=== PATIENT | female | born 1985 | race American Indian/Alaskan Native ===

== ENCOUNTER 2017-10-07 12:54 | Emergency (ER) | payer MEDICAID ==
[2017-10-07 13:15] VITALS: BP 141/80
--- NOTE | 2017-10-07 14:56 | Emergency Department Report ---
Blank Doc - Documentation Documentation: Patient is a 32-year-old [place] female who is presenting with lower abdominal pain for the last several days. Patient states there is some mild dysuria and low back pain as well. Patient took a test several weeks ago was positive she does not know how far along she may be. Patient will have a urinalysis done as well as a beta quant and ultrasound rule out ectopic.
--- NOTE | 2017-10-07 16:06 | Emergency Department Report ---
ED Abdominal Pain HPI - General Chief Complaint: Abdominal Pain Stated Complaint: STOMACH PAIN Time Seen by Provider: 10/07/17 14:49 Source: patient Mode of arrival: Ambulatory Limitations: No Limitations - History of Present Illness Initial Comments: Patient is a 32-year-old [place] female who is presenting with lower abdominal pain for the last 4 days. Patient states there is some mild dysuria and low back pain as well. Patient took a test several weeks ago was positive she does not know how far along she may be. Patient says that she usually sees Dr. Tacho Stokes at [facility] and she will be going to see him sometime next week. She reports that her pain is 7 out of 10 Pelvic area and is cramping . Denies any vaginal bleeding or discharge. Last menstrual period was 08/01/2017. Denies any vomiting or diarrhea but nausea on and off. MD Complaint: abdominal pain Onset/Timin -: days(s) Radiation: suprapubic Migration to: no migration Severity: severe Severity scale (0 -10): 7 Quality: cramping Consistency: intermittent Improves With: nothing Worsens With: nothing Context: other () Associated Symptoms: nausea, dysuria. denies: vomiting, diarrhea, fever, chills , constipation, hematemesis, hematochezia, melena, hematuria, anorexia, syncope Treatments Prior to Arrival: other (none) - Related Data LMP (females 10-50): Previous Rx's Medication Instructions Recorded Last Taken Type Doxylamine Succinate/Vit B6 1 each PO QHS PRN #15 tablet. 10/07/17 Unknown Rx [Hillary Hernadez 10-10 mg Tablet] Nitrofurantoin Payne/M-Cryst 100 mg PO Q12HR 7 Days #14 capsule 10/07/17 Unknown Rx [Macrobid CAP] Vit No.130/Iron/Folic 1 each PO QDAY 30 Days #30 tablet 10/07/17 Unknown Rx [ Tablet] Allergies Allergy/AdvReac Type Severity Reaction Status Date / Time No Known Allergies Allergy Verified 02/13/14 12:26 ED Review of Systems ROS: Stated complaint: STOMACH PAIN Other details as noted in HPI Constitutional: denies: chills, fever Eyes: denies: eye pain, eye discharge ENT: denies: ear pain, throat pain Respiratory: denies: cough, shortness of breath, SOB with exertion, SOB at rest , stridor, wheezing Cardiovascular: denies: chest pain, palpitations, dyspnea on exertion, edema, syncope Gastrointestinal: abdominal pain, nausea. denies: vomiting, diarrhea, constipation, hematemesis, melena, hematochezia Genitourinary: dysuria, abnormal menses. denies: urgency, frequency, hematuria , discharge, dyspareunia Musculoskeletal: back pain. denies: joint swelling, arthralgia, myalgia Skin: denies: rash, lesions Neurological: denies: headache, weakness, paresthesias, abnormal gait ED Past Medical Hx - Past Medical History Previous Medical History?: No - Surgical History Past Surgical History?: Yes Additional Surgical History: X 3 - Family History Family history: hypertension - Social History Smoking Status: Never Smoker Substance Use Type: Alcohol - Medications Home Medications: Home Medications Medication Instructions Recorded Confirmed Last Taken Type Doxylamine Succinate/Vit B6 1 each PO QHS PRN #15 tablet. 10/07/17 Unknown Rx [Diclegis Dr 10-10 mg Tablet] Nitrofurantoin Payne/M-Cryst 100 mg PO Q12HR 7 Days #14 capsule 10/07/17 Unknown Rx [Macrobid CAP] Vit No.130/Iron/Folic 1 each PO QDAY 30 Days #30 tablet 10/07/17 Unknown Rx [ Tablet] ED Physical Exam - General Limitations: No Limitations General appearance: alert, in no apparent distress - Head Head exam: Present: atraumatic, normocephalic, normal inspection - Eye Eye exam: Present: normal appearance, PERRL, EOMI Pupils: Present: normal accommodation - ENT ENT exam: Present: normal exam, normal orophraynx, mucous membranes moist - Neck Neck exam: Present: normal inspection, full ROM. Absent: tenderness, lymphadenopathy - Respiratory Respiratory exam: Present: normal lung sounds bilaterally. Absent: respiratory distress, chest wall tenderness - Cardiovascular Cardiovascular Exam: Present: regular rate, normal rhythm, normal heart sounds. Absent: systolic murmur, diastolic murmur - GI/Abdominal GI/Abdominal exam: Present: soft, tenderness (minimal suprapubic), normal bowel sounds. Absent: distended, guarding, rebound, rigid, organomegaly, mass - Extremities Exam Extremities exam: Present: normal inspection, full ROM, normal capillary refill , other (No cce. + 2 pulses in all extremities, no neurovascular compromise). Absent: tenderness, pedal edema, joint swelling, calf tenderness - Back Exam Back exam: Present: normal inspection, full ROM, tenderness, CVA tenderness (L) , other (ambulates without any difficulties). Absent: CVA tenderness (R), muscle spasm, paraspinal tenderness, vertebral tenderness, rash noted - Neurological Exam Neurological exam: Present: alert, oriented X3, normal gait, reflexes normal. Absent: motor sensory deficit - Psychiatric Psychiatric exam: Present: normal affect, normal mood - Skin Skin exam: Present: warm, dry, intact, normal color. Absent: rash ED Course Vital Signs 10/07/17 13:11 Temperature 98.5 F Pulse Rate 86 Respiratory 18 Rate Blood Pressure 141/80 O2 Sat by Pulse 100 Oximetry - Reevaluation(s) Reevaluation #1: 10/07/17 19:24 Patient stable throughout ED course. She did not require any medication. She is tolerating oral fluids well ED Medical Decision Making - Lab Data Lab Results 10/07/17 10/07/17 Range/Units 15:16 15:56 HCG, Quant 54874 H (0-4) mIU/mL Urine Color Yellow (Yellow) Urine Turbidity Clear (Clear) Urine pH 6.0 (5.0-7.0) Ur Specific [place] 1.014 (1.003-1.030) Urine Protein <15 mg/dl (Negative) mg/dL Urine Glucose (UA) Neg (Negative) mg/dL Urine Ketones Neg (Negative) mg/dL Urine Blood Neg (Negative) Urine Nitrite Neg (Negative) Urine Bilirubin Neg (Negative) Urine Urobilinogen < 2.0 (<2.0) mg/dL Ur Leukocyte Esterase Lg (Negative) Urine WBC (Auto) 20.0 H (0.0-6.0) /HPF Urine RBC (Auto) 3.0 (0.0-6.0) /HPF U Epithel Cells (Auto) 7.0 (0-13.0) /HPF Urine Bacteria (Auto) 1+ (Negative) /HPF Urine Mucus Few /HPF Urine culture sent - Radiology Data Radiology results: report reviewed Patient had OB transabdominal ultrasound less than 14 weeks dictated by radiologist's report reviewed by myself. Please see details below. Patient: JAZZY BLANDONA MR#: [id number] : 1985 Acct:[id number] Age/Sex: 32 / F ADM Date: 10/07/17 Loc: ED Attending Dr: Ordering Physician: PRITI NOVOA MD Date of Service: 10/07/17 Procedure(s): US OB <= 14 weeks fetus Accession Number(s): [id number] cc: PRITI NOVOA MD FINAL REPORT EXAM: US OB lt; = 14 WEEKS FETUS HISTORY: preg with abd pain TECHNIQUE: Transabdominal sonography of the pelvis. PRIORS: None. FINDINGS: There is a single, live intrauterine . Ultrasound estimated gestational age is 9 weeks 6 days. Ultrasound estimated date of confinement is 06 May 2018. heart motion is detected. The right ovary measures 3.1 x 1.2 x 3.1 cm and is grossly unremarkable. The left ovary measures 3.8 x 2.6 x 3.9 cm and contains a rounded, complex cystic focus measuring approximately 2.7 cm. Remainder of uterus and adnexa grossly unremarkable. IMPRESSION: 1. Single, live intrauterine . 2. Findings which may represent functional cystic change in the left ovary. Clinical correlation and followup pelvic ultrasound in 6-10 weeks advised to document resolution. Transcribed By: [facility] Dictated By: MARLY HARRIS MD Electronically Authenticated By: MARLY HARRIS MD Signed Date/Time: 10/07/171902 DD/ 02 TD/TT: 10/07/171902 - Medical Decision Making This is a 32-year-old female patient here reports that she is having lower abdominal pain and low back pain with urinary burning and she took test is home which is positive. Since that she sees Dr. Tacho Stokes who is her [employer] doctor who she has an appointment with. Patient was screened by Dr. Marina Novoa and orders place to include urinalysis, hCG and transabdominal ultrasound. Patient examined by myself and physical exam is normal except she has mild tenderness to palpate to pelvic area. Urinalysis shows patient with large leukocyte Estrace, positive white blood cell and positive bacteria and urine test is positive. Her hCG positive and correlates with OB ultrasound which was dictated by radiologist and place patient at 9 weeks with detected motion. Single, lives intrauterine . Patient also has functional cyst to left ovary. Patient also reported that she was having some nausea on and off without any vomiting. I discussed with patient her lab results and also OB ultrasound results and she was understanding. She has an appointment with Dr. Mike Stokes. Patient also aware that she has left ovarian cyst which she says she really knows about. Patient with urinary tract infection and , urine culture sent. Nausea intermittent and , abdominal pain in and left ovarian cyst. Patient discharged home in stable condition in no acute distress. Patient given prescription for Macrobid, vitamin andDiclegis. She understands that she is to follow-up with Dr. Tacho Stokes in 2 days. I also discussed with her she has vaginal bleeding and, nausea vomiting, fever and/or chills or return to the emergency room [facility] and she was understanding her vital signs are stable, she is afebrile and her pain has subsided while waiting in an emergency room. - Differential Diagnosis ectopic , threatened miscarriage, ovarian cyst, UTI Critical care attestation.: If time is entered above; I have spent that time in minutes in the direct care of this critically ill patient, excluding procedure time. ED Disposition Clinical Impression: Abdominal pain during in first trimester, Nausea and vomiting in adult patient UTI (urinary tract infection) during Qualifiers: Trimester: first trimester Qualified Code(s): O23.41 - Unspecified infection of urinary tract in , first trimester Dysuria in Qualifiers: Trimester: first trimester Qualified Code(s): O26.891 - Other specified related conditions, first trimester Disposition: DC-01 TO HOME OR SELFCARE Is pt being admited?: No Does the pt Need Aspirin: No Condition: Stable Instructions: Urinary Tract Infection in Women (ED), Acute Nausea and Vomiting (ED), Dysuria (ED), Abdominal Pain in (ED) Additional Instructions: Please follow-up with your C[facility] INFORMATION ASSOCIATE at outside [facility]. Keep appointment as discussed Start taking vitamin Take Macrobid for UTI Increase fluid intake Take nausea medication as prescribed Prescriptions: Doxylamine Succinate/Vit B6 [Hillary Hernadez 10-10 mg Tablet] 1 each PO QHS PRN #15 tablet. PRN Reason: Nausea And Vomiting Nitrofurantoin Payne/M-Cryst [Macrobid CAP] 100 mg PO Q12HR 7 Days #14 capsule Vit No.130/Iron/Folic [ Tablet] 1 each PO QDAY 30 Days #30 tablet Referrals: TACHO STOKES MD [Staff Physician] - 10/09/17 Forms: Work/School Release Form(ED)
[2017-10-07 16:22] LABS: Bacteria,Urine 1+ /HPF (Negative); Bilirubin,Urine NEG (Negative); Blood,Urine NEG (Negative); Color,Urine Yellow (Yellow); Mucus,Urine FEW /HPF; Protein,Urine <15 mg/dL mg/dL (Negative); Urobilinogen,Urine < 2.0 mg/dL (<2.0)
--- NOTE | 2017-10-07 19:10 | Ultrasound Report ---
FINAL REPORT EXAM: US OB < = 14 WEEKS FETUS HISTORY: preg with abd pain TECHNIQUE: Transabdominal sonography of the pelvis. PRIORS: None. FINDINGS: There is a single, live intrauterine . Ultrasound estimated gestational age is 9 weeks 6 days. Ultrasound estimated date of confinement is 06 May 2018. heart motion is detected. The right ovary measures 3.1 x 1.2 x 3.1 cm and is grossly unremarkable. The left ovary measures 3.8 x 2.6 x 3.9 cm and contains a rounded, complex cystic focus measuring approximately 2.7 cm. Remainder of uterus and adnexa grossly unremarkable. IMPRESSION: 1. Single, live intrauterine . 2. Findings which may represent functional cystic change in the left ovary. Clinical correlation and followup pelvic ultrasound in 6-10 weeks advised to document resolution.
== END 2017-10-07 19:35 | disposition home or self-care (01) ==
LOC: ED 12:54
DX: O23.41 Unspecified infection of urinary tract in pregnancy, first trimester (principal); O21.9 Vomiting of pregnancy, unspecified; Z3A.09 9 weeks gestation of pregnancy
CPT/HCPCS: 36415; 76801; 81001; 84702; 87086; 99284

== ENCOUNTER 2018-05-05 18:11 | Inpatient (IN) | payer MEDICAID, OTHER ==
[2018-05-05] MEDS ORDERED: LACTATED RINGERS 1,000 ML IV ONE ×2 (20:52→22:48)
[2018-05-05 21:07] LABS: Bilirubin,Urine NEG (Negative); Blood,Urine NEG (Negative); Color,Urine Yellow (Yellow); Mucus,Urine 2+ /HPF
[2018-05-05 23:00] LABS: Hematocrit 26.3 % (30.3-42.9); Hemoglobin 7.8 gm/dl (10.1-14.3); Mean Corpuscular HGB Conc 30 % (30-34); Platelet Count 147 K/mm3 (140-440); Red Blood Count 3.96 M/mm3 (3.65-5.03); Red Cell Distribution Width 18.8 % (13.2-15.2)
[2018-05-05 23:18] LABS: Mean Corpuscular Volume 67 fl (79-97)
--- NOTE | 2018-05-05 23:43 | History and Physical Report ---
History of Present Illness Date of examination: 05/05/18 Chief complaint: Labor History of present illness: Pt is a 33yo BF EDC 05/16/18; EGA 38 3/7 weeks presents to L&D complaining of RUC's q 4-5 mins. She received care at [facility] and course significant for previous C Section x 3. She had a non- reassuring tracing in Triage and BPP 6/10 with SALINAS 6.1 Past History Past Medical History: no pertinent history Past Surgical History: section (x3) Family/Genetic History: none Social history: no significant social history, single - Obstetrical History Expected Date of Delivery: 05/16/18 Actual Gestation: 38 Week(s) 3 Day(s) : 6 Medications and Allergies Allergies Allergy/AdvReac Type Severity Reaction Status Date / Time No Known Allergies Allergy Verified 05/05/18 19:54 Home Medications Medication Instructions Recorded Confirmed Last Taken Type No Known Home Medications [No 05/05/18 05/05/18 Unknown History Reported Home Medications] Active Meds: Active Medications Lactated Ringer's (Lactated Ringers) 1,000 mls @ 999 mls/hr IV BOLUS ONE Stop: 05/05/18 23:48 Review of Systems All systems: negative - Vital Signs Vital signs: Vital Signs Pulse BP 87 138/73 05/05/18 19:18 05/05/18 19:18 Temp Pulse Resp BP Pulse Ox 98.0 F 93 H 20 135/71 100 05/05/18 19:37 05/05/18 23:36 05/05/18 19:37 05/05/18 21:55 05/05/18 23:36 - Physical Exam Breasts: Positive: deferred Cardiovascular: Regular rate Lungs: Positive: Clear to auscultation Abdomen: Positive: normal appearance Genitourinary (Female): Positive: normal external genitalia Vagina: Positive: normal moisture Uterus: Positive: enlarged Extremities: Positive: normal - Obstetrical FHR: category 2 Uterine Contraction Monitor Mode: External Cervical Dilatation: 1 (per nurse) Cervical Effacement Percentage: 70 (per nurse) Uterine Contraction Pattern: Irregular Uterine Tone Measurement Phase: Contraction Uterine Contraction Intensity: Moderate Results Result Diagrams: 05/05/18 22:45 Abnormal lab results 05/05/18 Range/Units 22:45 Hgb 7.8 L (10.1-14.3) gm/dl Hct 26.3 L (30.3-42.9) % MCV 67 L (79-97) fl MCH 20 L (28-32) pg RDW 18.8 H (13.2-15.2) % All other labs normal. Ultrasound: report reviewed (BPP 6/; SALINAS 6.1) Assessment and Plan - Patient Problems (1) 38 weeks gestation of Onset Date: 05/05/18 Current Visit: Yes Status: Acute Plan to address problem: A: IUP @ 38 3/7 weeks in labor Previous C Section Non-reassuring surveillance Anemia affecting P: Admit to L&D for Repeat C Section Will transfuse 1 unit of blood prior to C Section (2) Previous section complicating Onset Date: 05/05/18 Current Visit: Yes Status: Acute (3) Anemia affecting in third trimester Onset Date: 05/05/18 Current Visit: Yes Status: Acute
[2018-05-05] MEDS ORDERED: NACL 0.9% 500 ML 500 ML IV ONE (23:44)
[2018-05-05] MEDS ORDERED: BICITRA PO ONE (23:44)
[2018-05-05] MEDS ORDERED: TYLENOL PO ONE (23:44)
[2018-05-05] MEDS ORDERED: BENADRYL IV ONE (23:44)
[2018-05-05] MEDS ORDERED: PEPCID IV ONE (23:44)
[2018-05-05] MEDS ORDERED: REGLAN IV ONE (23:44)
[2018-05-05] MEDS ORDERED: LACTATED RINGERS 1,000 ML IV SCH (23:45)
[2018-05-05] MEDS ORDERED: ANCEF/STERILE WATER 2 GM/20 ML 2 GM/20 ML SYRINGE IV NR (23:45)
[2018-05-05] MEDS ORDERED: PITOCin/NS 20 UNIT/1000ML DRIP 20 UNITS/1,000 ML BAG IV SCH (23:45)
[2018-05-06] MEDS ORDERED: ALBUTEIN IV ONE (00:06)
[2018-05-06] MEDS ORDERED: SUBLIMAZE ONE (00:39)
[2018-05-06] MEDS ORDERED: ASTRAMORPH PF 10MG/10ML ONE (00:39)
--- NOTE | 2018-05-06 00:47 | Ultrasound Report ---
PROCEDURE: US OB BPP WO NON-STRESS TECHNIQUE: Ultrasound for biophysical profile obtained. HISTORY: wellbeing COMPARISONS: None FINDINGS: Single IUP visualized. Viable fetus with heart rate of 154 bpm. Biophysical profile is 6/8. Low amniotic fluid index measuring 6.1 cm. IMPRESSION: Biophysical profile is 6/8. Low amniotic fluid index measuring 6.1 cm.. This document is electronically signed by Reza Prince MD., May 06 2018 12:44:44 AM ET
--- NOTE | 2018-05-06 01:02 | Ultrasound Report ---
PROCEDURE: US OB LIMITED TECHNIQUE: Limited OB ultrasound obtained. HISTORY: wellbeing COMPARISONS: None FINDINGS: Single IUP visualized. Viable fetus with heart rate of 154 bpm. Amniotic fluid index measures 6.1 cm, correlate for ruptured membranes. IMPRESSION: Single IUP visualized. Viable fetus with heart rate of 154 bpm. Amniotic fluid index measures 6.1 cm, correlate for ruptured membranes.. This document is electronically signed by Reza Prince MD., May 06 2018 12:59:49 AM ET
[2018-05-06] MEDS ORDERED: WATER FOR IRRIG STERILE IR ONE (01:06)
[2018-05-06] MEDS ORDERED: NACL 0.9% IR ONE (01:06)
[2018-05-06] MEDS ORDERED: TORADOL ONE (01:28)
--- NOTE | 2018-05-06 01:42 | Operative Report ---
Operative Report Operative Report: Date of procedure: 05/06/2018 Pre-operative diagnosis: 1. Intrauterine at 38-3/7 weeks in labor 2 . Previous 3 3. Non-reassuring surveillance 4. Anemia affecting Post-operative diagnosis: Same. Meconium fluid. Procedure name(s): Repeat low transverse section Surgeon: Tacho Stokes MD [place] Structural Glass: None Anesthesia: Spinal anesthesia by Dr. Dunbar EBL: 600 mL Findings: A 3482 g female Apgars 8 at 1 minute and 5 minutes. 1+ meconium fluid. Normal uterus and lower uterine segment adhesions. Normal tubes and ovaries bilaterally. Procedure: After the patient was prepped and draped in usual sterile fashion, and after satisfactory level of epidural anesthesia was obtained, the skin knife was used to make a transverse skin incision through the previous skin scars. The incision was excised down to layer of the fascia, which was nicked in the midline and extended laterally using the Bovie cautery. The rectus muscles were dissected off the rectus fascia both superiorly and inferiorly. The rectus bellies in the midline, and the peritoneum was entered under direct visualization. The peritoneal incision was extended superiorly and inferiorly. A bladder flap was created and the bladder blade was then placed. The uterus w as scored in a curvilinear linear fashion, entered in the midline revealing meconium amniotic fluid. The 's head was delivered onto the surgical field with the aid of a vacuum, and the oropharynx and nasopharynx were bulb suctioned. The rest of the infant's body was delivered, cord was doubly clamped and cut and the infant was handed to the waiting respiratory team. The placenta was manually removed from the uterus, and the uterus removed from its normal anatomical position. After gentle uterine lavage, the incision was inspected and found to be without extensions. It was then closed in 2 layers using 0 Vicryl suture in a running interlocking fashion, the second layer imbricating the first. After good hemostasis was achieved, copious amounts or irrigation was performed, and the gutters were suctioned free of blood and blood clots. The Tisseel sealant was sprayed across the uterine incision. The uterus was then returned to its normal anatomical position, and after excellent hemostasis assured, the peritoneum was re-approximated using 3-0 Vicryl suture in a running interlocking fashion, and then the rectus muscles were re-approximated using 3-0 Vicryl suture in a [id number] configuration. The fascia was then re- approximated using 0 Vicryl suture in running interlocking fashion. The subcutaneous layer was made hemostatic using Bovie cautery, the Tisseel sealant was sprayed across the fascial incision and the skin edges re-approximated using 4-0 Vicryl suture in a sub-cuticular fashion. Patient tolerated the procedure well was transported to recovery in stable condition.
[2018-05-06] MEDS ORDERED: TYLENOL PO PRN (01:52)
[2018-05-06] MEDS ORDERED: MILK OF MAGNESIA PO PRN (01:52)
[2018-05-06] MEDS ORDERED: ZOFRAN IV PRN ×2 (01:52→02:03)
[2018-05-06] MEDS ORDERED: TUCKS PAD TP PRN (01:52)
[2018-05-06] MEDS ORDERED: TORADOL IV PRN (01:52)
[2018-05-06] MEDS ORDERED: PHENERGAN PR PRN ×2 (01:52→02:03)
[2018-05-06] MEDS ORDERED: NARCAN 0.4 MG/1 ML IV PRN ×2 (01:52→02:03)
[2018-05-06] MEDS ORDERED: MYLICON PO PRN (01:52)
[2018-05-06] MEDS ORDERED: LANSINOH TP PRN (01:52)
[2018-05-06] MEDS ORDERED: SENOKOT PO PRN (01:52)
[2018-05-06] MEDS ORDERED: D5LR 1,000 ML IV SCH (02:00)
[2018-05-06] MEDS ORDERED: ANCEF/NS 1 GM/50 ML 1 GM/50 ML BAG IV SCH (02:00)
[2018-05-06] MEDS ORDERED: PITOCin/NS 20 UNIT/1000ML DRIP 20 UNITS/1,000 ML BAG IV SCH (02:00)
[2018-05-06] MEDS ORDERED: SODIUM CHLORIDE FLUSH SYRINGE 10 ML IV NR ×2 (02:00→03:00)
--- NOTE | 2018-05-06 02:02 | Anesthesia Consultation ---
Anesthesia Consult and Med Hx - Airway Anesthetic Teeth Evaluation: Good ROM Head & Neck: Adequate Mental/Hyoid Distance: Adequate Mallampati Class: Class III Intubation Access Assessment: Probably Good - Pulmonary Exam CTA: Yes - Cardiac Exam Cardiac Exam: RRR - Pre-Operative Health Status ASA Pre-Surgery Classification: ASA2, Emergency Proposed Anesthetic Plan: Spinal - Pulmonary Hx Smoking: No Hx Asthma: No Hx Respiratory Symptoms: No SOB: No COPD: No Home Oxygen Therapy: No Hx Pneumonia: No Hx Sleep Apnea: No - Cardiovascular System Hx Hypertension: No Hx Coronary Artery Disease: No Hx Heart Attack/AMI: No Hx Angina: No Hx Percutaneous Transluminal Coronary Angioplasty (PTCA): No Hx Cardia Arrhythmia: No Hx Pacemaker: No Hx Internal Defibrillator: No Hx Valvular Heart Disease: No Hx Heart Murmur: No Hx Peripheral Vascular Disease: No - Central Nervous System Hx Neuromuscular Disorder: No Hx Seizures: No CVA: No Hx Back Pain: No Hx Psychiatric Problems: No - Gastrointestinal Hx Ulcer: No Hx Gastroesophageal Reflux Disease: No - Endocrine Hx Renal Disease: Yes (frequent UTI) Hx End Stage Renal Disease: No Hx Cirrhosis: No Hx Liver Disease: No Hx Insulin Dependent Diabetes: No Hx Non-Insulin Dependent Diabetes: No Hx Thyroid Disease: No Hx Hypothyroidism: No Hx Hyperthyroidism: No - Hematic Hx Anemia: Yes Hx Sickle Cell Disease: No - Other Systems Hx Alcohol Use: No Hx Substance Use: No Hx Cancer: No Hx Obesity: No
[2018-05-06] MEDS ORDERED: PHENERGAN PO PRN (02:03)
--- NOTE | 2018-05-06 02:03 | Anesthesia Day of Surgery ---
Anesthesia Day of Surgery - Day of Surgery Patient Examined: Yes Patient H&P Reviewed: Yes Patient is NPO: Yes Beta Blockers: No Cardiac Clearance: No Pulmonary Clearance: No Karthik's Test: N/A
--- NOTE | 2018-05-06 02:03 | Post Anesthesia Evaluation ---
- Post Anesthesia Evaluation Patient Participated: Yes Airway Patent: Yes Stable Respiratory Function: Yes Nausea/Vomiting: No Temp > 96.8F: Yes Pain Manageable: Yes Adequeate Hydration: Yes Anesthesia Complications: No Block Receding Appropriately: Yes Patient on Ventilator: No
[2018-05-06] MEDS ORDERED: fentaNYL-BUPIV 2 MCG/ML-0.125% 200 MCG/100 ML BAG EPIDURAL SCH (03:00)
[2018-05-06] MEDS: FEOSOL PO SCH (11:53)
[2018-05-06] MEDS: ANCEF/NS 1 GM/50 ML 1 GM/50 ML BAG IV SCH ×2 (11:54→22:02)
[2018-05-06] MEDS: PRENATAL VITAMIN PO SCH (11:54)
[2018-05-06 13:39] LABS: Amphetamine Screen,Urine PRESUMPTIVE NEGATIVE; Benzodiazepines Screen,Urine PRESUMPTIVE NEGATIVE; Cannabinoid Screen,Urine PRESUMPTIVE NEGATIVE; Cocaine Screen,Urine PRESUMPTIVE NEGATIVE; Methadone Screen,Urine PRESUMPTIVE NEGATIVE; Opiate Screen,Urine PRESUMPTIVE NEGATIVE
[2018-05-06 17:04] LABS: Hematocrit 24.5 % (30.3-42.9); Hemoglobin 7.2 gm/dl (10.1-14.3)
[2018-05-06] MEDS: NORCO 5/325 PO PRN (22:00)
[2018-05-07] MEDS ORDERED: M-M-R II VACCINE SUB-Q ONE (01:54)
[2018-05-07] MEDS ORDERED: BOOSTRIX IM ONE (01:54)
[2018-05-07] MEDS: PERCOCET 5/325 PO PRN (02:41)
--- NOTE | 2018-05-07 09:01 | Progress Note ---
Assessment and Plan - Patient Problems (1) 38 weeks gestation of Onset Date: 05/05/18 Current Visit: Yes Status: Resolved (2) Previous section complicating Onset Date: 05/05/18 Current Visit: Yes Status: Resolved (3) Anemia affecting in third trimester Onset Date: 05/05/18 Current Visit: Yes Status: Chronic (4) Status post section Onset Date: 05/07/18 Current Visit: Yes Status: Resolved Plan to address problem: A: S/P C Section - POD #1 Doing well Asymptomatic anemia - stable P: Continue RPOC Encourage ambulation Anticipate discharge in 24-48hrs Subjective - Subjective Date of service: 05/07/18 Principal diagnosis: s/p C Section - POD #1 Interval history: Pt is complaining of incision pains. She is tolerating a liquid diet without nausea or vomiting, but not ambulating. Patient reports: appetite normal, voiding normally, pain poorly controlled, no dizzy ambulation, no flatus, no ambulating normally, no nauseated [place]: doing well, bottle feeding Objective - Vital Signs Latest vital signs: Vital Signs Temp Pulse Resp BP BP Pulse Ox 05/07/18 05:15 98.3 F 88 20 124/77 98 05/06/18 21:44 98.7 F 92 H 20 127/79 100 05/06/18 18:36 98.6 F 101 H 20 138/70 100 05/06/18 13:09 98.4 F 85 20 121/82 99 05/06/18 10:15 98.3 F 101 H 24 130/79 99 Intake and Output 05/06/18 05/07/18 05/07/18 22:59 06:59 14:59 Intake Total 240 Balance 240 Intake: Oral 240 Other: Total, Intake Amount 240 # Voids Void 1 - Exam Breasts: Present: deferred Abdomen: Present: normal appearance, soft Uterus: Present: normal, firm, fundal height below umbilicus Extremities: Present: normal Incision: Present: normal, dry, intact, dressed - Labs Labs: Abnormal lab results 05/05/18 05/06/18 Range/Units 22:45 15:40 Hgb 7.2 L (10.1-14.3) gm/dl Hct 24.5 L (30.3-42.9) % Crossmatch See Detail Laboratory Tests 05/05/18 05/05/18 05/05/18 20:06 22:45 22:45 WBC 7.2 RBC 3.96 Hgb 7.8 L Hct 26.3 L MCV 67 L MCH 20 L MCHC 30 RDW 18.8 H Plt Count 147 Urine Color Yellow Urine Turbidity Clear Urine pH 5.0 Ur Specific [place] 1.029 Urine Protein 30 mg/dl Urine Glucose (UA) Neg Urine Ketones Tr Urine Blood Neg Urine Nitrite Neg Urine Bilirubin Neg Urine Urobilinogen 4.0 Ur Leukocyte Esterase Tr Urine WBC (Auto) 5.0 Urine RBC (Auto) 1.0 U Epithel Cells (Auto) 2.0 Urine Mucus 2+ Urine Opiates Screen Urine Methadone Screen Ur Barbiturates Screen Ur Phencyclidine Scrn Ur Amphetamines Screen U Benzodiazepines Scrn Urine Cocaine Screen U Marijuana (THC) Screen Drugs of Abuse Note HIV 1&2 Antibody Rapid HIV P24 Antigen Rubella IgG Antibody Blood Type A POSITIVE Antibody Screen Negative Crossmatch See Detail 05/06/18 05/06/18 05/06/18 11:15 11:15 13:18 WBC RBC Hgb Hct MCV MCH MCHC RDW Plt Count Urine Color Urine Turbidity Urine pH Ur Specific [place] Urine Protein Urine Glucose (UA) Urine Ketones Urine Blood Urine Nitrite Urine Bilirubin Urine Urobilinogen Ur Leukocyte Esterase Urine WBC (Auto) Urine RBC (Auto) U Epithel Cells (Auto) Urine Mucus Urine Opiates Screen Presumptive negative Urine Methadone Screen Presumptive negative Ur Barbiturates Screen Presumptive negative Ur Phencyclidine Scrn Presumptive negative Ur Amphetamines Screen Presumptive negative U Benzodiazepines Scrn Presumptive negative Urine Cocaine Screen Presumptive negative U Marijuana (THC) Screen Presumptive negative Drugs of Abuse Note Disclamer HIV 1&2 Antibody Rapid Non react HIV P24 Antigen Non react Rubella IgG Antibody Immune Blood Type Antibody Screen Crossmatch 05/06/18 15:40 WBC RBC Hgb 7.2 L Hct 24.5 L MCV MCH MCHC RDW Plt Count Urine Color Urine Turbidity Urine pH Ur Specific [place] Urine Protein Urine Glucose (UA) Urine Ketones Urine Blood Urine Nitrite Urine Bilirubin Urine Urobilinogen Ur Leukocyte Esterase Urine WBC (Auto) Urine RBC (Auto) U Epithel Cells (Auto) Urine Mucus Urine Opiates Screen Urine Methadone Screen Ur Barbiturates Screen Ur Phencyclidine Scrn Ur Amphetamines Screen U Benzodiazepines Scrn Urine Cocaine Screen U Marijuana (THC) Screen Drugs of Abuse Note HIV 1&2 Antibody Rapid HIV P24 Antigen Rubella IgG Antibody Blood Type Antibody Screen Crossmatch
[2018-05-07] MEDS: IBUPROFEN PO PRN (09:07)
[2018-05-07] MEDS: FEOSOL PO SCH (09:14)
[2018-05-07] MEDS: PRENATAL VITAMIN PO SCH (09:14)
[2018-05-08] MEDS: IBUPROFEN PO PRN (01:27)
[2018-05-08] MEDS: NORCO 5/325 PO PRN (01:29)
--- NOTE | 2018-05-08 09:56 | Progress Note ---
Assessment and Plan - Patient Problems (1) 38 weeks gestation of Onset Date: 05/05/18 Current Visit: Yes Status: Resolved (2) Previous section complicating Onset Date: 05/05/18 Current Visit: Yes Status: Resolved (3) Anemia affecting in third trimester Onset Date: 05/05/18 Current Visit: Yes Status: Chronic (4) Status post section Onset Date: 05/07/18 Current Visit: Yes Status: Resolved Plan to address problem: A: S/P C Section - POD #2 Doing well Asymptomatic anemia - stable P: May go home tomorrow. Subjective - Subjective Date of service: 05/08/18 Principal diagnosis: s/p C Section - POD #2 Interval history: Pt is complaining of incision pains. She is tolerating a reg diet without nausea or vomiting, ambulating and voiding without difficulty. Patient reports: appetite normal, voiding normally, pain well controlled, flatus, ambulating normally, no dizzy ambulation, no nauseated : doing well, bottle feeding Objective - Vital Signs Latest vital signs: Vital Signs Temp Pulse Resp BP BP Pulse Ox 05/08/18 08:16 98.5 F 20 129/65 05/08/18 00:49 147/87 05/08/18 00:00 99.6 F 114 H 20 147/87 96 05/07/18 16:51 98.6 F 89 20 135/80 98 Intake and Output 05/07/18 05/08/18 05/08/18 22:59 06:59 14:59 Intake Total 240 240 Balance 240 240 Intake: Oral 240 240 Other: Total, Intake Amount 240 240 # Voids Void 1 1 - Exam Abdomen: Present: normal appearance, soft Uterus: Present: normal, firm, fundal height below umbilicus Extremities: Present: normal Incision: Present: normal, dry, intact
[2018-05-08] MEDS: FEOSOL PO SCH (10:54)
[2018-05-08] MEDS: PRENATAL VITAMIN PO SCH (10:54)
--- NOTE | 2018-05-08 12:52 | Discharge Summary ---
Providers - Providers Date of Admission: 05/06/18 01:56 Date of discharge: 05/09/18 Attending physician: MEETA CASTRO Primary care physician: SOFTWARE PROGRAMMER Hospitalization Reason for admission: active labor, section, IUP at term Delivery: Procedure: section, repeat low transverse Episiotomy: none Laceration: none Incision: normal, dry, intact Other procedures: none complications: none Discharge diagnosis: IUP at term delivered [place] baby: female Hospital course: Pt is a 33yo BF EDC 05/16/18; EGA 38 3/ weeks who presented to L&D complaining of RUC's q 4-5 mins. She said she received care at [facility] and course significant for previous C Section x 3. She had a non-reassuring tracing in Triage and BPP 10 with SALINAS 6.1 so she was delivered by an uncomplicated Repeat C Section. Post operative course was unremarkable and by POD #2 she was tolerating a reg diet without nausea or vomiting, ambulating and voiding without difficulty. She will therefore be discharged to home on POD #3 in stable condition. Condition at discharge: Good Disposition: [id number] TO HOME OR SELFCARE - Discharge Diagnoses (1) 38 weeks gestation of Status: Resolved (2) Previous section complicating Status: Resolved (3) Anemia affecting in third trimester Status: Chronic Plan - Discharge Medications Prescriptions: Ferrous Sulfate [Feosol 325 MG tab] 325 mg PO BID #60 tablet Ibuprofen [Motrin 800 MG tab] 800 mg PO Q6H PRN #30 tablet PRN Reason: Pain, Mild (1-3) HYDROcodone/APAP 5-325 [[place] 5-325 mg TAB] 1 each PO Q6HR PRN #30 tablet PRN Reason: Pain, Moderate (4-6) Vit-Fe Fumar-FA [ Vitamin] 1 each PO QDAY #30 tablet - Provider Discharge Summary Activity: routine, no sex for 6 weeks, no heavy lifting 4 weeks, no strenuous exercise Diet: routine Instructions: routine Additional instructions: [] Smoking cessation referral if applicable(refer to patient education folder for contact #) [] Refer to [facility] Booklet Call your doctor immediately for: * Fever > 100.5 * Heavy vaginal bleeding ( >1 pad per hour) * Severe persistent headache * Shortness of breath * Reddened, hot, painful area to leg or breast * Drainage or odor from incision. * Keep incision clean and dry at all times and follow doctor's instructions regarding bathing/showering - Follow up plan Follow up: PRIMARY CARE,MD [Primary Care Provider] - 7 Days MEETA CASTRO MD [Staff Physician] - 14 Days
[2018-05-08] MEDS: PERCOCET 5/325 PO PRN (21:56)
[2018-05-09] MEDS: PERCOCET 5/325 PO PRN (06:05)
[2018-05-09] MEDS: FEOSOL PO SCH (18:12)
[2018-05-09] MEDS: PRENATAL VITAMIN PO SCH (18:13)
[2018-05-09 20:16] VITALS: BP 148/75
== END 2018-05-09 16:40 | disposition home or self-care (01) | DRG 788 ==
LOC: TRG 18:11 → APU 05-06 01:56 → OB 05-06 03:10
PROVIDERS: ADMIT Obstetrics & Gynecology; ATTEND Obstetrics & Gynecology
PROC: 10D00Z1 Extraction of Products of Conception, Low, Open Approach (ICD-10-PCS; principal; 2018-05-06)
PROC: 30233N1 Transfusion of Nonautologous Red Blood Cells into Peripheral Vein, Percutaneous Approach (ICD-10-PCS; 2018-05-06)
PROC: 3E0234Z Introduction of Serum, Toxoid and Vaccine into Muscle, Percutaneous Approach (ICD-10-PCS; 2018-05-07)
DX: O34.211 Maternal care for low transverse scar from previous cesarean delivery (principal); O76 Abnormality in fetal heart rate and rhythm complicating labor and delivery; D64.9 Anemia, unspecified; O77.0 Labor and delivery complicated by meconium in amniotic fluid; O99.02 Anemia complicating childbirth; Z3A.38 38 weeks gestation of pregnancy; Z37.0 Single live birth; Z23 Encounter for immunization; Z87.440 Personal history of urinary (tract) infections
CPT/HCPCS: 36415; 76815; 76819; 80307; 81001; 85014; 85018; 85027; 86592; 86706; 86762; 86850; 86900; 86901; 86920; 87806; G0378; C9250; J0690; J1885; J2274; J2405; J2590; J2765; J3010; J7120; J7121; P9016; P9045

== ENCOUNTER 2020-05-17 15:33 | Emergency (ER) | payer SELFPAY ==
[2020-05-17 16:07] VITALS: BP 135/77
--- NOTE | 2020-05-17 17:53 | Emergency Department Report ---
ED Neuro Deficit HPI - General Chief Complaint: Neuro Symptoms/Deficit Stated Complaint: RT ARM NUMBNESS AND PAIN X 3DAYS Time Seen by Provider: 05/17/20 17:44 Source: patient Mode of arrival: Ambulatory Limitations: No Limitations - History of Present Illness Initial Comments: 35-year-old obese -[place] female presents emerged department compla ining of a couple day history of right upper extremity numbness tingling and pain to the right hand off and on of an unknown etiology. 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 Ports no fever, chills, sweats, no headache, no blurred vision, no nausea, no vomiting, no known elevation in blood pressure. -: Gradual Location: right arm History of same: Yes Place: home Quality: numb, tingling Improves With: none Worsens With: none Context: gradual onset - Related Data Home Medications: Previous Rx's Medication Instructions Recorded Last Taken Type Ferrous Sulfate [Feosol 325 MG tab] 325 mg PO BID #60 tablet 05/08/18 Unknown Rx HYDROcodone/APAP 5-325 [[place] 1 each PO Q6HR PRN #30 tablet 05/08/18 Unknown Rx 5-325 mg TAB] Ibuprofen [Motrin 800 MG tab] 800 mg PO Q6H PRN #30 tablet 05/08/18 Unknown Rx Vit-Fe Fumar-FA [ 1 each PO QDAY #30 tablet 05/08/18 Unknown Rx Vitamin] Allergies/Adverse Reactions: Allergies Allergy/AdvReac Type Severity Reaction Status Date / Time No Known Allergies Allergy Verified 05/17/20 16:00 ED Review of Systems ROS: Stated complaint: RT ARM NUMBNESS AND PAIN X 3DAYS Other details as noted in HPI Comment: All other systems reviewed and negative ED Past Medical Hx - Past Medical History Previous Medical History?: No Hx Hypertension: No Hx Heart Attack/AMI: No Hx Diabetes: No Hx Deep Vein Thrombosis: No Hx Liver Disease: No Hx Renal Disease: Yes (frequent UTI) Hx Sickle Cell Disease: No Hx Seizures: No Hx Asthma: No Hx COPD: No Hx HIV: No - Surgical History Hx Pacemaker: No Hx Internal Defibrillator: No Additional Surgical History: X 3 - Social History Smoking Status: Never Smoker Substance Use Type: None - Medications Home Medications: Home Medications Medication Instructions Recorded Confirmed Last Taken Type Ferrous Sulfate [Feosol 325 MG tab] 325 mg PO BID #60 tablet 05/08/18 Unknown Rx HYDROcodone/APAP 5-325 [[place] 1 each PO Q6HR PRN #30 tablet 05/08/18 Unknown Rx 5-325 mg TAB] Ibuprofen [Motrin 800 MG tab] 800 mg PO Q6H PRN #30 tablet 05/08/18 Unknown Rx Vit-Fe Fumar-FA [ 1 each PO QDAY #30 tablet 05/08/18 Unknown Rx Vitamin] ED Neuro Physical Exam - General Limitations: No Limitations General appearance: alert, in no apparent distress Suspected Stroke: No - Head Head exam: Present: atraumatic, normocephalic - Eye Eye exam: Present: normal appearance - ENT ENT exam: Present: normal exam, mucous membranes moist - Neck Neck exam: Present: normal inspection - Respiratory Respiratory exam: Present: normal lung sounds bilaterally. Absent: respiratory distress, wheezes, rales, rhonchi, chest wall tenderness, accessory muscle use - Cardiovascular Cardiovascular Exam: Present: regular rate, normal rhythm. 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 Negative Tinel's sign. Phalen's test is is normal. Negative Daniel's maneuver and no fovea sign). Absent: pedal edema, joint swelling - Back Exam Back exam: Present: normal inspection. Absent: CVA tenderness (R), CVA tenderness (L) - Neurological Exam Neurological exam: Present: alert, oriented X3 - Psychiatric Psychiatric exam: Present: normal affect, normal mood - Skin Skin exam: Present: warm, dry, intact, normal color. Absent: rash ED Course Vital Signs 05/17/20 05/17/20 16:04 16:06 Temperature 98.2 F Pulse Rate 89 Respiratory 18 Rate Blood Pressure 135/77 O2 Sat by Pulse 100 Oximetry - Lab Data Lab Results 05/17/20 Range/Units 18:10 Urine HCG, Qual Positive A (Negative) - Medical Decision Making 35-year-old female just emerged from complaining of right upper extremity numbness tingling and pain to the hand which radiates from the forearm down to the right hand states that she feels it may be secondary to as last time she felt something like that she was . She has not taken a home test reports no vaginal bleeding, no fever, chills, sweats, no chest pain palpitations no nausea no vomiting. Reports no neck pain. No neck trauma. Reports no wrist pain or wrist trauma. Urine test was positive emergency department advised patient to follow-up with [facility] for further evaluation of her and to follow-up with with neuro for her right upper extremity and neuropathy. Critical care attestation.: If time is entered above; I have spent that time in minutes in the direct care of this critically ill patient, excluding procedure time. ED Disposition Clinical Impression: Positive test, , Upper extremity neuropathy Disposition: - TO HOME OR SELFCARE Is pt being admited?: No Does the pt Need Aspirin: No Condition: Stable Instructions: Home Test Information, Care Additional Instructions: test is positive please be sure to follow-up with [facility] and urology to further evaluate your right upper extremity note normal neuropathy. Referrals: PRIMARY CARE, [Primary Care Provider] - 3-5 Days [facility] [Provider Group] - 3-5 Days [facility] [Provider Group] - 3-5 Days [facility] [Provider Group] - 3-5 Days
[2020-05-17 18:24] LABS: HCG Qualitative,Urine Positive (Negative)
== END 2020-05-17 18:30 | disposition home or self-care (01) ==
LOC: ED 15:33
DX: O26.891 Other specified pregnancy related conditions, first trimester (principal); G56.90 Unspecified mononeuropathy of unspecified upper limb; Z3A.01 Less than 8 weeks gestation of pregnancy; Z79.899 Other long term (current) drug therapy; Z98.890 Other specified postprocedural states
CPT/HCPCS: 81025

== ENCOUNTER 2020-09-22 15:35 | Inpatient (IN) | payer MEDICAID, OTHER ==
[2020-09-22] MEDS ORDERED: BICITRA ORAL LIQD 30ML PO SCH (16:31)
[2020-09-22] MEDS ORDERED: METOCLOPRAMIDE 10 MG/2 ML INJ IV SCH (16:31)
[2020-09-22] MEDS ORDERED: FAMOTIDINE 20 MG/2 ML INJ IV SCH (16:31)
[2020-09-22] MEDS ORDERED: SODIUM CHLORIDE 0.9% 500 ML 500 ML IV SCH (16:34)
--- NOTE | 2020-09-22 16:35 | History and Physical Report ---
History of Present Illness Date of examination: 09/22/20 Chief complaint: IUP in the third trimester with scant care Noncompliance Previous x4 Multiparity desiring permanent surgical sterilization Alcohol dependence in History of present illness: 35-year-old -1-1-4 at 39 weeks today presents from [facility] for delivery. Late care with initiation at 37 weeks with 4 total visits; noncompliant Previous section x4; multiparity with desire for permanent surgical sterilization Patient admits to alcohol dependence in History of anemia with hemoglobin 7.7 and antepartum testing; fingerstick 6.9 today in the office Past History Past Surgical History: section - Obstetrical History Expected Date of Delivery: 09/29/20 Actual Gestation: 39 Week(s) 0 Day(s) : 6 Medications and Allergies Allergies Allergy/AdvReac Type Severity Reaction Status Date / Time No Known Allergies Allergy Verified 05/17/20 16:00 Home Medications Medication Instructions Recorded Confirmed Last Taken Type Ferrous Sulfate [Feosol 325 MG tab] 325 mg PO BID #60 tablet 05/08/18 Unknown Rx HYDROcodone/APAP 5-325 [[place] 1 each PO Q6HR PRN #30 tablet 05/08/18 Unknown Rx 5-325 mg TAB] Ibuprofen [Motrin 800 MG tab] 800 mg PO Q6H PRN #30 tablet 05/08/18 Unknown Rx Vit-Fe Fumar-FA [ 1 each PO QDAY #30 tablet 05/08/18 Unknown Rx Vitamin] Active Meds: Active Medications Citric Acid/Sodium Citrate (Bicitra Oral Liqd 30ml) 30 ml PO ONCE ONE Stop: 09/22/20 16:32 Famotidine (Famotidine 20 Mg/2 Ml Inj) 20 mg IV ONCE ONE Stop: 09/22/20 16:32 Lactated Ringer's (Lactated Ringers) 1,000 mls @ 2,250 mls/hr IV PREOP CLAUDIA Stop: 09/23/20 17:12 Oxytocin/Sodium Chloride (Pitocin/Ns 30 Unit/500ml) 30 units in 500 mls @ 0 mls/hr IV TITR CLAUDIA; Protocol Cefazolin Sodium (Ancef/Sterile Water 2 Gm/20 Ml) 2 gm in 20 mls @ 80 mls/hr IV PREOP NR; Protocol Metoclopramide HCl (Metoclopramide 10 Mg/2 Ml Inj) 10 mg IV ONCE ONE Stop: 09/22/20 16:32 - Vital Signs Vital signs: Vital Signs Pulse BP 97 H 155/70 09/22/20 16:23 09/22/20 16:23 Temp Pulse Resp BP Pulse Ox 98.1 F 101 H 20 155/70 98 09/22/20 16:24 09/22/20 16:34 09/22/20 16:24 09/22/20 16:23 09/22/20 16:34 - Physical Exam Breasts: Positive: deferred Cardiovascular: Regular rate Lungs: Positive: Clear to auscultation Abdomen: Positive: normal appearance, soft, normal bowel sounds Uterus: Positive: enlarged (FH38cm) Extremities: Positive: normal Deep Tendon Reflex Grade: Normal +2 - Obstetrical FHR: category 1 Results Result Diagrams: 09/22/20 17:05 All other labs normal. Assessment and Plan Plan for admission Continuous monitoring Ultrasound for BPP and NST labs Transfuse 2 units PRBC N.p.o. after midnight Repeat with BTL in a.m. Terminal status reassuring at bedside Ayden Matthews MD
[2020-09-22] MEDS ORDERED: ceFAZolin/Water 2 GM/20 ML 2 GM/20 ML SYRINGE IV NR (17:00)
[2020-09-22] MEDS ORDERED: OXYTOCIN DRIP 30 UNITS/500 ML BAG IV SCH (17:00)
[2020-09-22 17:49] LABS: Basophils % (Auto) 0.5 % (0.0-1.8); Eosinophils % (Auto) 0.7 % (0.0-4.3); Hematocrit 25.2 % (30.3-42.9); Hemoglobin 7.8 gm/dl (10.1-14.3); Lymphocytes # (Auto) 1.2 K/mm3 (1.2-5.4); Lymphocytes % (Auto) 18.3 % (13.4-35.0); Mean Corpuscular HGB Conc 31 % (30-34); Monocytes # (Auto) 0.5 K/mm3 (0.0-0.8); Platelet Count 138 K/mm3 (140-440); Red Blood Count 3.72 M/mm3 (3.65-5.03)
[2020-09-22 17:51] LABS: Hepatitis C Virus Antibody Non-Reactive (NonReactive)
[2020-09-22 17:52] LABS: Mean Corpuscular Volume 68 fl (79-97)
--- NOTE | 2020-09-22 18:28 | Ultrasound Report ---
LIMITED OBSTETRICAL ULTRASOUND INDICATION: Term , evaluation of weight, amniotic fluid, position, biophysical p rofile COMPARISON: None recent FINDINGS: Term intrauterine is noted with fetus in a cephalic position. Placenta is anterio r and free of the internal cervical os. Amniotic fluid volume appears satisfactory and SALINAS is within normal limits at 13.7 cm. Cardiac activity was documented with heart rate of 156 bpm. Estimated gestational age is 38 weeks 1 day which corresponds with clinical dating. No survey was not pe rformed but no obvious abnormalities are noted. Estimated weight is 3493 g +/- 517 g in the 60t h percentile. BIOPHYSICAL PROFILE breathing movements: 2/2 movements: 0/2 posture and tone tone: 0/2 Qualitative amniotic fluid volume: 2/2 Total score: 4/8, decreased Signer Name: Danish Keys MD Signed: 09/22/2020 6:24 PM Workstation Name: [id number]
[2020-09-22 18:58] LABS: Mucus,Urine FEW /HPF; RBC,Urine < 1.0 /HPF (0.0-6.0); WBC,Urine < 1.0 /HPF (0.0-6.0)
[2020-09-22 18:59] LABS: Amphetamine Screen,Urine Negative; Benzodiazepines Screen,Urine Negative; Bilirubin,Urine NEG (Negative); Blood,Urine NEG (Negative); Cannabinoid Screen,Urine Negative; Cocaine Screen,Urine Negative; Color,Urine Yellow (Yellow); Methadone Screen,Urine Negative; Opiate Screen,Urine Negative; Protein,Urine <15 mg/dL mg/dL (Negative); Urobilinogen,Urine < 2.0 mg/dL (<2.0)
--- NOTE | 2020-09-22 23:42 | Progress Note ---
Subjective - Subjective Date of service: 09/22/20 Interval history: Maternal/ status reassuring FHT Category 1 [facility]: negative Hb 7.8- receiving two units PRBC's NPO after midnight,plan for RCS with BTL in AM Ayden Matthews MD Objective - Vital Signs Vital Signs: Vital Signs - 12hr 09/22/20 09/22/20 09/22/20 16:23 16:24 16:34 Temperature 98.1 F Pulse Rate 97 H 101 H Respiratory 20 Rate Blood Pressure 155/70 O2 Sat by Pulse 98 Oximetry 09/22/20 09/22/20 09/22/20 16:39 18:14 18:19 Temperature Pulse Rate 99 H 86 87 Respiratory Rate Blood Pressure O2 Sat by Pulse 98 98 98 Oximetry 09/22/20 09/22/20 09/22/20 18:29 18:34 18:39 Temperature Pulse Rate 95 H 91 H 86 Respiratory Rate Blood Pressure O2 Sat by Pulse 100 99 99 Oximetry 09/22/20 09/22/20 09/22/20 18:43 18:45 18:50 Temperature Pulse Rate 96 H 95 H 86 Respiratory Rate Blood Pressure O2 Sat by Pulse 77 L 97 98 Oximetry 09/22/20 09/22/20 09/22/20 18:55 18:57 19:00 Temperature Pulse Rate 99 H 79 93 H Respiratory Rate Blood Pressure 170/100 O2 Sat by Pulse 98 94 98 Oximetry 09/22/20 09/22/20 09/22/20 19:02 19:05 19:10 Temperature Pulse Rate 87 84 98 H Respiratory Rate Blood Pressure 153/77 O2 Sat by Pulse 98 96 Oximetry 09/22/20 09/22/20 09/22/20 19:12 19:15 19:20 Temperature Pulse Rate 105 H 86 90 Respiratory Rate Blood Pressure O2 Sat by Pulse 93 98 98 Oximetry 09/22/20 09/22/20 09/22/20 19:25 19:31 19:32 Temperature Pulse Rate 91 H 93 H 88 Respiratory Rate Blood Pressure 140/68 O2 Sat by Pulse 99 98 Oximetry 09/22/20 09/22/20 09/22/20 19:37 19:42 19:47 Temperature Pulse Rate 92 H 90 94 H Respiratory Rate Blood Pressure O2 Sat by Pulse 98 97 98 Oximetry 09/22/20 09/22/20 09/22/20 20:47 20:52 20:57 Temperature Pulse Rate 95 H 96 H 63 Respiratory Rate Blood Pressure 131/77 O2 Sat by Pulse 97 96 83 L Oximetry 09/22/20 09/22/20 09/22/20 21:02 21:10 21:15 Temperature Pulse Rate 91 H 95 H 94 H Respiratory Rate Blood Pressure 141/80 O2 Sat by Pulse 100 96 97 Oximetry 09/22/20 09/22/20 09/22/20 21:18 21:20 21:24 Temperature 98.5 F Pulse Rate 94 H 91 H 89 Respiratory 18 Rate Blood Pressure 139/70 139/70 O2 Sat by Pulse 98 Oximetry 09/22/20 09/22/20 09/22/20 21:25 21:30 21:35 Temperature Pulse Rate 93 H 91 H 95 H Respiratory Rate Blood Pressure O2 Sat by Pulse 96 98 97 Oximetry 09/22/20 09/22/20 09/22/20 21:39 21:40 21:45 Temperature 98.1 F Pulse Rate 90 97 H 98 H Respiratory 18 Rate Blood Pressure 136/71 136/71 O2 Sat by Pulse 99 97 99 Oximetry 09/22/20 09/22/20 09/22/20 21:50 21:55 22:00 Temperature Pulse Rate 91 H 90 94 H Respiratory Rate Blood Pressure O2 Sat by Pulse 98 97 97 Oximetry 09/22/20 09/22/20 09/22/20 22:05 22:09 22:10 Temperature 98.3 F Pulse Rate 92 H 87 88 Respiratory 19 Rate Blood Pressure 130/61 O2 Sat by Pulse 97 98 97 Oximetry 09/22/20 09/22/20 09/22/20 22:11 22:15 22:20 Temperature Pulse Rate 85 90 86 Respiratory Rate Blood Pressure 130/61 O2 Sat by Pulse 97 98 Oximetry 09/22/20 09/22/20 09/22/20 22:25 22:30 22:35 Temperature Pulse Rate 93 H 89 87 Respiratory Rate Blood Pressure O2 Sat by Pulse 98 97 97 Oximetry 09/22/20 09/22/20 09/22/20 22:39 22:40 22:42 Temperature 98.0 F Pulse Rate 84 84 84 Respiratory 18 Rate Blood Pressure 129/60 129/60 O2 Sat by Pulse 98 97 Oximetry 09/22/20 09/22/20 09/22/20 22:45 22:50 22:55 Temperature Pulse Rate 91 H 86 100 H Respiratory Rate Blood Pressure O2 Sat by Pulse 98 99 98 Oximetry 09/22/20 09/22/20 09/22/20 23:00 23:05 23:09 Temperature 98.1 F Pulse Rate 89 81 81 Respiratory 18 Rate Blood Pressure 148/81 O2 Sat by Pulse 98 99 98 Oximetry 09/22/20 09/22/20 09/22/20 23:10 23:12 23:15 Temperature Pulse Rate 82 79 88 Respiratory Rate Blood Pressure 148/81 O2 Sat by Pulse 98 98 Oximetry 09/22/20 09/22/20 09/22/20 23:20 23:28 23:29 Temperature Pulse Rate 85 99 H 88 Respiratory Rate Blood Pressure O2 Sat by Pulse 98 95 91 Oximetry 09/22/20 09/22/20 23:33 23:38 Temperature Pulse Rate 91 H 75 Respiratory Rate Blood Pressure O2 Sat by Pulse 97 98 Oximetry - Labs Labs: Abnormal Labs 09/22/20 09/22/20 17:05 17:05 Hgb 7.8 L Hct 25.2 L MCV 68 L MCH 21 L RDW 19.0 H Plt Count 138 L Seg Neutrophils % 73.5 H Crossmatch See Detail Laboratory Results - last 24 hr 09/22/20 09/22/20 09/22/20 17:05 17:05 17:05 WBC 6.6 RBC 3.72 Hgb 7.8 L Hct 25.2 L MCV 68 L MCH 21 L MCHC 31 RDW 19.0 H Plt Count 138 L Lymph % (Auto) 18.3 Becker % (Auto) 7.0 Eos % (Auto) 0.7 Baso % (Auto) 0.5 Lymph # (Auto) 1.2 Becker # (Auto) 0.5 Eos # (Auto) 0.0 Baso # (Auto) 0.0 Seg Neutrophils % 73.5 H Seg Neutrophils # 4.9 Urine Color Urine Turbidity Urine pH Ur Specific [place] Urine Protein Urine Glucose (UA) Urine Ketones Urine Blood Urine Nitrite Ur Reducing Substances Urine Bilirubin Urine Ictotest Urine Urobilinogen Ur Leukocyte Esterase Urine WBC (Auto) Urine RBC (Auto) U Epithel Cells (Auto) Urine Mucus Urine Opiates Screen Urine Methadone Screen Ur Barbiturates Screen Ur Phencyclidine Scrn Ur Amphetamines Screen U Benzodiazepines Scrn Urine Cocaine Screen U Marijuana (THC) Screen Drugs of Abuse Note Syphilis IgG Antibody Hep Bs Antigen Hepatitis C Antibody Non-reactive HIV 1&2 Antibody Rapid HIV P24 Antigen Rubella IgG Antibody Immune Blood Type A POSITIVE Antibody Screen Negative Crossmatch See Detail 09/22/20 09/22/20 09/22/20 17:05 17:05 17:05 WBC RBC Hgb Hct MCV MCH MCHC RDW Plt Count Lymph % (Auto) Becker % (Auto) Eos % (Auto) Baso % (Auto) Lymph # (Auto) Becker # (Auto) Eos # (Auto) Baso # (Auto) Seg Neutrophils % Seg Neutrophils # Urine Color Urine Turbidity Urine pH Ur Specific [place] Urine Protein Urine Glucose (UA) Urine Ketones Urine Blood Urine Nitrite Ur Reducing Substances Urine Bilirubin Urine Ictotest Urine Urobilinogen Ur Leukocyte Esterase Urine WBC (Auto) Urine RBC (Auto) U Epithel Cells (Auto) Urine Mucus Urine Opiates Screen Urine Methadone Screen Ur Barbiturates Screen Ur Phencyclidine Scrn Ur Amphetamines Screen U Benzodiazepines Scrn Urine Cocaine Screen U Marijuana (THC) Screen Drugs of Abuse Note Syphilis IgG Antibody Nonreactive Hep Bs Antigen Non-reactive Hepatitis C Antibody HIV 1&2 Antibody Rapid Non react HIV P24 Antigen Non react Rubella IgG Antibody Blood Type Antibody Screen Crossmatch 09/22/20 09/22/20 18:12 18:12 WBC RBC Hgb Hct MCV MCH MCHC RDW Plt Count Lymph % (Auto) Becker % (Auto) Eos % (Auto) Baso % (Auto) Lymph # (Auto) Becker # (Auto) Eos # (Auto) Baso # (Auto) Seg Neutrophils % Seg Neutrophils # Urine Color Yellow Urine Turbidity Clear Urine pH 7.0 Ur Specific [place] 1.017 Urine Protein <15 mg/dl Urine Glucose (UA) Neg Urine Ketones Neg Urine Blood Neg Urine Nitrite Neg Ur Reducing Substances Not Reportable Urine Bilirubin Neg Urine Ictotest Not Reportable Urine Urobilinogen < 2.0 Ur Leukocyte Esterase Neg Urine WBC (Auto) < 1.0 Urine RBC (Auto) < 1.0 U Epithel Cells (Auto) 1.0 Urine Mucus Few Urine Opiates Screen Negative Urine Methadone Screen Negative Ur Barbiturates Screen Negative Ur Phencyclidine Scrn Negative Ur Amphetamines Screen Negative U Benzodiazepines Scrn Negative Urine Cocaine Screen Negative U Marijuana (THC) Screen Negative Drugs of Abuse Note Disclamer Syphilis IgG Antibody Hep Bs Antigen Hepatitis C Antibody HIV 1&2 Antibody Rapid HIV P24 Antigen Rubella IgG Antibody Blood Type Antibody Screen Crossmatch
[2020-09-23] MEDS: LACTATED RINGERS 1,000 ML IV SCH ×2 (06:26→14:35)
[2020-09-23 07:49] LABS: Basophils % (Auto) 0.3 % (0.0-1.8); Eosinophils # (Auto) 0.1 K/mm3 (0.0-0.4); Eosinophils % (Auto) 0.9 % (0.0-4.3); Hematocrit 31.1 % (30.3-42.9); Hemoglobin 9.7 gm/dl (10.1-14.3); Lymphocytes # (Auto) 1.6 K/mm3 (1.2-5.4); Lymphocytes % (Auto) 20.2 % (13.4-35.0); Mean Corpuscular HGB Conc 31 % (30-34); Mean Corpuscular Volume 71 fl (79-97); Monocytes # (Auto) 0.6 K/mm3 (0.0-0.8); Monocytes % (Auto) 7.3 % (0.0-7.3); Platelet Count 124 K/mm3 (140-440); Red Blood Count 4.37 M/mm3 (3.65-5.03)
[2020-09-23] MEDS ORDERED: SODIUM CHLORIDE 0.9% 500 ML 500 ML IV ONE (08:47)
--- NOTE | 2020-09-23 09:18 | Anesthesia Day of Surgery ---
Anesthesia Day of Surgery - Day of Surgery Patient Examined: Yes Patient H&P Reviewed: Yes Patient is NPO: Yes Beta Blockers: No Cardiac Clearance: No Pulmonary Clearance: No Karthik's Test: Negative
[2020-09-23] MEDS ORDERED: ACETAMINOPHEN 325 MG TAB PO PRN (09:19)
[2020-09-23] MEDS ORDERED: NalbUPHINE 10 MG/1 ML INJ IV PRN (09:19)
[2020-09-23] MEDS ORDERED: ePHEDrine SULFATE 50 MG/1 ML INJ IV PRN (09:19)
[2020-09-23] MEDS ORDERED: NALOXONE 0.4 MG/1 ML INJ IV PRN ×2 (09:20→11:23)
[2020-09-23] MEDS ORDERED: ONDANSETRON 4 MG/2 ML INJ IV PRN ×2 (09:20→11:23)
[2020-09-23] MEDS ORDERED: HYDROmorphone 1 MG/1 ML INJ IV PRN ×2 (09:20)
--- NOTE | 2020-09-23 09:20 | Anesthesia Consultation ---
Anesthesia Consult and Med Hx Date of service: 09/23/20 - Airway Anesthetic Teeth Evaluation: Poor ROM Head & Neck: Adequate Mental/Hyoid Distance: Adequate Mallampati Class: Class II Intubation Access Assessment: Probably Good - Pulmonary Exam CTA: Yes - Cardiac Exam Cardiac Exam: RRR - Pre-Operative Health Status ASA Pre-Surgery Classification: ASA3 Proposed Anesthetic Plan: Spinal - Pulmonary Hx Smoking: No Hx Asthma: No Hx Respiratory Symptoms: No SOB: No COPD: No Home Oxygen Therapy: No Hx Pneumonia: No Hx Sleep Apnea: No - Cardiovascular System Hx Hypertension: No Hx Coronary Artery Disease: No Hx Heart Attack/AMI: No Hx Angina: No Hx Percutaneous Transluminal Coronary Angioplasty (PTCA): No Hx Cardia Arrhythmia: No Hx Pacemaker: No Hx Internal Defibrillator: No Hx Valvular Heart Disease: No Hx Heart Murmur: No Hx Peripheral Vascular Disease: No - Central Nervous System Hx Neuromuscular Disorder: No Hx Seizures: No CVA: No Hx Back Pain: No Hx Psychiatric Problems: No - Gastrointestinal Hx Ulcer: No Hx Gastroesophageal Reflux Disease: No - Endocrine Hx Renal Disease: Yes (frequent UTI) Hx End Stage Renal Disease: No Hx Cirrhosis: No Hx Liver Disease: No Hx Insulin Dependent Diabetes: No Hx Non-Insulin Dependent Diabetes: No Hx Thyroid Disease: No Hx Hypothyroidism: No Hx Hyperthyroidism: No - Hematic Hx Anemia: Yes Hx Sickle Cell Disease: No - Other Systems Hx Alcohol Use: No Hx Substance Use: No Hx Cancer: No Hx Obesity: Yes
[2020-09-23] MEDS ORDERED: LACTATED RINGERS 1,000 ML IV SCH (09:30)
[2020-09-23] MEDS ORDERED: METHYLERGONOVINE MALEATE 0.2 MG/ML VIAL IM ONE (09:34)
[2020-09-23] MEDS ORDERED: miSOPROStol 200 MCG TAB ONE (09:53)
--- NOTE | 2020-09-23 09:53 | Procedure Note ---
OB Delivery Note - Delivery Date of Delivery: 09/23/20 Surgeon: KENNEDY RED - Section Preop diagnosis: repeat , desires sterilization Postop diagnosis: same section procedure: repeat low transverse, bilateral tubal ligation Disposition: PACU Narrative: Preop diagnosis: IUP at 39.1 weeks,previous sectionx4, non-reassuring testing,noncompliance in the preiod, anemia and multiparity Postop diagnosis: Same,delivered Procedure: Repeat low transverse section via Pfannenstiel incision with modified bilateral Forest Tubal Ligation Surgeon: Dr. Kennedy Red Anesthesia spinal Complications dense pelvic adhesions EBL 483ml IV fluids 1050mL Urine output 50mL, clear Drains Krishnamurthy to gravity Findings: Viable female with weight 3410gms and 8/9, normal uterus tubes and ovaries bilaterally Procedure: Patient was consented in room 2002,taken to the operating room where she received excellent spinal anesthesia. She was then placed in the dorsal supine position with a leftward tilt. The abdomen was prepped and draped in a sterile fashion, and a timeout was verified. Adequate analgesia was confirmed prior to the skin incision. A Pfannenstiel skin incision was made with a scalpel, the incision was then taken down sharply to the underlying structures and the fascia was incised in the midline. The incision was extended laterally with electrocautery, the superior and inferior aspects of the fascial incisions were grasped with Danny clamps and the rectus muscles dissected with cautery to allow for adequate visualization. The abdomen was entered sharply in the midline carried down inferiorly with good visualization of the bladder. Dense pelvic adhesions were then taken down sharply with the Metzenbaum scissors. A uterine "window" was then noted posterior to the vesicouterine adhesions. The uterine dehiscence was then extended laterally bluntly to allow for AROM clear fluid and delivery of the head. The reaminder of the delivery was atraumatic. The cord was clamped and cut and baby handed to waiting NICU team. An intact placenta with three-vessel cord delivered manually. The uterus was then cleared of all clots and debris and the uterus exteriorized. Brisk bleeding was then noted from the right uterine vessels which were suture ligated with figure of eight sutures of 0-vicryl to allow for excellent hemostatis. The uterine incision was closed with 2 layers of 0 chromic with excellent hemostasis. Attention then turned to the fallopian tubes which were suture- ligated bilaterally in a modified Forest fashion. The abdomen was then irrigated with warm normal saline and the uterus placed back into the abdomen atraumatically. A second look at the uterine incision assured hemostasis. The peritoneum was closed with 3-0 Vicryl, the rectus muscles approximated with 3-0 Vicryl, and the fascia closed with 0 Vicryl in the usual fashion. The subcuticular structures were closed with interrupted sutures of 3-0 Vicryl and the skin closed with 4-0 Monocryl. A pressure dressing was applied. All sponge needle and instrument counts were correct x2. There were no complications. Mom and baby stable to PACU. EBL 483 mL Ayden Red MD
[2020-09-23] MEDS ORDERED: ONDANSETRON 4 MG/2 ML INJ ONE (10:00)
[2020-09-23] MEDS ORDERED: dexAMETHasone 20 MG/5 ML VIAL ONE (10:43)
[2020-09-23] MEDS ORDERED: BUPIVACAINE/PF (0.25%) 2.5 MG/ML 30 ML VIAL INFILTRATI ONE ×2 (10:43)
[2020-09-23] MEDS ORDERED: WITCH HAZEL/ GLYCERIN PAD TP PRN (11:23)
[2020-09-23] MEDS ORDERED: IBUPROFEN 600 MG TAB PO PRN (11:23)
[2020-09-23] MEDS ORDERED: MORPHINE 4 MG/1 ML INJ IV PRN (11:23)
[2020-09-23] MEDS ORDERED: PROMETHAZINE 25 MG RECT SUPP PR PRN (11:23)
[2020-09-23] MEDS ORDERED: MORPHINE 2 MG/1 ML INJ IV PRN (11:23)
[2020-09-23] MEDS ORDERED: LANOLIN/ZINC/DIMETHICONE (LANSINOH) 7 GM TP PRN (11:23)
--- NOTE | 2020-09-23 11:45 | Progress Note ---
Spinal Anesthesia Block - Spinal Anesthesia Block Start Time: 09:50 Stop Time: :56 Performed by:: AC FINLEY Procedure: Patient IDed, H&P reviewed, all questions and concerns were answered, and consent was signed. Timeout was performed at bedside. Patient in sitting position. Sterile prep and drape was performed. [3] ml of 1% lidocaine skin wheal at L[3]- L [4]. Needle introducer advanced. 25 gauge spinal needle advanced. Clear, free flowing CSF. negative blood, negative paresthesia. Spinal dose given. All needles removed. Patient tolerated procedure.
--- NOTE | 2020-09-23 11:46 | Progress Note ---
Regional Anesthesia Block - Regional Anesthesia Block Start Time: 11:37 Stop Time: 11:39 Performed By:: AC FINLEY Procedure: Patient consented for TAP block for post surgical pain management. Patient identified, monitors placed, and time out performed. TAP identified bilaterally via ultrasound. Skin prepped bilaterally with [chlorhexidine] and [22g stimuplex] needle advanced to the TAP. [Marcaine 0.25% 35ml] injected under ultrasound guidance on the [left] side. [Marcaine 0.25% 35ml] injected under ultrasound guidance on the [right] side. Negative aspiration every 5mL, No change in heart rate or rhythm. Patient tolerated the procedure well. No apparent complications seen.
[2020-09-23] MEDS: HYDROcodone/ACETAMINOPHEN 5-325 MG TAB PO PRN (20:05)
[2020-09-23] MEDS: KETOROLAC 30 MG/1 ML INJ IV PRN (21:05)
[2020-09-24 01:57] LABS: Hematocrit 29.8 % (30.3-42.9); Hemoglobin 9.2 gm/dl (10.1-14.3)
[2020-09-24] MEDS: HYDROcodone/ACETAMINOPHEN 5-325 MG TAB PO PRN ×4 (02:30→22:46)
[2020-09-24] MEDS: KETOROLAC 30 MG/1 ML INJ IV PRN (04:15)
[2020-09-24] MEDS: SIMETHICONE 80 MG CHEW TAB PO PRN ×2 (10:39→17:03)
[2020-09-24] MEDS: IBUPROFEN 800 MG TAB PO PRN (10:39)
--- NOTE | 2020-09-24 11:07 | Progress Note ---
Assessment and Plan A: /postop day 1 S/P repeat LTCS with BTL. Anemia. Obesity. Coronavirus positive (asymptomatic). P: Encouraged ambulation. Iron supplementation. Coronavirus precautions. Simethicone. Encouraged patient to drink warm liquids to help with passage of gas. Subjective - Subjective Date of service: 09/24/20 Principal diagnosis: /postop day 1 S/P repeat LTCS with BTL Interval history: Coronavirus positive; denies cough, shortness of breath, fever or chills, or any other symptoms. Patient reports: appetite normal, voiding normally, pain well controlled, flatus, ambulating normally, no dizzy ambulation, no bowel movement, no nauseated : doing well Objective - Vital Signs Latest vital signs: Vital Signs Temp Pulse Resp BP BP Pulse Ox Pulse Ox 09/24/20 08:55 99 09/24/20 08:53 97.6 F 81 18 152/83 99 09/24/20 05:43 97.7 F 72 18 142/90 98 09/23/20 23:38 98.0 F 79 20 154/93 91 09/23/20 21:08 98.2 F 83 20 141/81 98 09/23/20 20:05 97 09/23/20 15:41 97.6 F 82 16 140/76 97 09/23/20 13:02 100 09/23/20 13:00 97.7 F 72 18 137/80 97 09/23/20 12:30 68 18 148/90 100 09/23/20 12:26 141/84 09/23/20 12:20 161/88 09/23/20 12:15 68 18 158/90 100 09/23/20 12:00 68 18 138/55 99 09/23/20 11:45 68 18 131/77 100 09/23/20 11:40 72 18 148/77 100 09/23/20 11:35 97.7 F 71 18 140/87 100 Intake and Output 09/23/20 09/24/20 09/24/20 23:59 07:59 15:59 Intake Total 720 480 Output Total 1800 600 Balance -1080 -120 Intake: Oral 480 120 Intake, Free Water 240 360 Output: Urine 1800 600 Indwelling Catheter 1700 Void 100 600 Other: Total, Intake Amount 120 120 Total, Output Amount 100 600 - Exam Cardiovascular: Present: Regular rate Lungs: Present: Clear to auscultation Abdomen: Present: normal appearance, soft, normal bowel sounds. Absent: distention, tenderness, guarding, rigidity Uterus: Present: normal, firm, fundal height below umbilicus. Absent: bogginess, tenderness Extremities: Present: edema (pedal edema). Absent: tenderness Incision: Present: dry, dressed - Labs Labs: Abnormal lab results 09/23/20 09/24/20 Range/Units 09:09 00:25 Hgb 9.2 L (10.1-14.3) gm/dl Hct 29.8 L (30.3-42.9) % Coronavirus (PCR) Positive A (Negative)
--- NOTE | 2020-09-24 12:18 | Event Note ---
BPs elevated. Labetalol 100 mg po BID ordered and labs repeated.
[2020-09-24] MEDS: FERROUS SULFATE 325 MG TAB PO SCH (13:01)
[2020-09-24 14:48] LABS: Alanine Aminotransferase < 5 units/L (7-56); BUN/Creatinine Ratio 23; Blood Urea Nitrogen 9 mg/dL (7-17); Hemolysis Index 1
[2020-09-25] MEDS: IBUPROFEN 800 MG TAB PO PRN ×2 (03:53→21:49)
[2020-09-25] MEDS: FERROUS SULFATE 325 MG TAB PO SCH (11:17)
[2020-09-25] MEDS: HYDROcodone/ACETAMINOPHEN 5-325 MG TAB PO PRN ×2 (11:17→17:38)
--- NOTE | 2020-09-25 12:39 | Discharge Summary ---
Providers - Providers Date of Admission: 09/23/20 09:11 Date of discharge: 09/25/20 Attending physician: KENNEDY RED MD Primary care physician: KENNEDY RED MD Hospitalization Reason for admission: section Delivery: Procedure: bilateral tubal ligation, repeat low transverse Episiotomy: none Laceration: none Incision: normal, dry, intact Other procedures: none complications: other (anemia, covid pos) Discharge diagnosis: IUP at term delivered [place] baby: female Hospital course: Pt was admitted in labor for a repeat LTCS and a BTL. Pt tested pos for covid 19. No pp complications were noted and pt was d/c'd home w/o problems. See H&P, delivery summary, and pp notes. Condition at discharge: Stable Disposition: DC- TO HOME OR SELFCARE Plan - Discharge Medications Prescriptions: Ferrous Sulfate [Feosol 325 MG tab] 325 mg PO QDAY #120 tablet labetaloL [Labetalol 100mg TAB] 100 mg PO BID #120 tablet Ibuprofen [Motrin 800 MG tab] 800 mg PO Q6H PRN #30 tablet PRN Reason: Pain, Moderate (4-6) - Provider Discharge Summary Activity: routine, no sex for 6 weeks, no heavy lifting 4 weeks, no strenuous exercise Diet: routine Instructions: routine Additional instructions: [] Smoking cessation referral if applicable(refer to patient education folder for contact #) [] Refer to [facility]'s [facility] Booklet Call your doctor immediately for: * Fever > 100.5 * Heavy vaginal bleeding ( >1 pad per hour) * Severe persistent headache * Shortness of breath * Reddened, hot, painful area to leg or breast * Drainage or odor from incision. * Keep incision clean and dry at all times and follow doctor's instructions regarding bathing/showering - Follow up plan Follow up: KENNEDY RED MD [Primary Care Provider] - 14 Days
[2020-09-26] MEDS: HYDROcodone/ACETAMINOPHEN 5-325 MG TAB PO PRN (00:38)
[2020-09-26] MEDS: FERROUS SULFATE 325 MG TAB PO SCH (09:49)
[2020-09-26] MEDS: IBUPROFEN 800 MG TAB PO PRN (09:50)
[2020-09-26 13:05] VITALS: BP 124/58
== END 2020-09-26 13:25 | disposition home or self-care (01) | DRG 783 ==
LOC: TRG 15:35 → APU 15:49 → LD 15:53 → TRG 09-23 09:09 → LD 09-23 09:11 → OB 09-23 13:36
PROVIDERS: ADMIT Obstetrics & Gynecology; ATTEND Obstetrics & Gynecology
PROC: 10D00Z1 Extraction of Products of Conception, Low, Open Approach (ICD-10-PCS; principal; 2020-09-23)
PROC: 0UB70ZZ Excision of Bilateral Fallopian Tubes, Open Approach (ICD-10-PCS; 2020-09-23)
DX: O34.211 Maternal care for low transverse scar from previous cesarean delivery (principal); U07.1 COVID-19; O98.52 Other viral diseases complicating childbirth; Z3A.39 39 weeks gestation of pregnancy; Z37.0 Single live birth; O99.314 Alcohol use complicating childbirth; F10.20 Alcohol dependence, uncomplicated; Y90.9 Presence of alcohol in blood, level not specified; O99.02 Anemia complicating childbirth; D64.9 Anemia, unspecified
CPT/HCPCS: 36415; 76816; 76819; 80053; 80307; 81001; 83615; 84550; 85014; 85018; 85025; 85049; 86592; 86706; 86762; 86803; 86850; 86900; 86901; 86920; 87806; 88302; 88307; G0378; A6250; J1100; J1885; J2270; J2405; J2765; J3490; J7120; P9016; U0003